=== PATIENT | male | born 1965 | race Caucasian/White ===

== ENCOUNTER 2024-09-25 13:51 | Emergency (ER) | payer OTHER ==
[~2024-09-25] VITALS: Ht 188 cm; Wt 102.1 kg
[2024-09-25 14:43] LABS: BASOPHILS # (AUTO) 0.04 K/uL (0.00-0.20); BASOPHILS % (AUTO) 0.6 % (0.0-5.0); EOSINOPHILS # (AUTO) 0.23 K/uL (0.00-0.70); EOSINOPHILS % (AUTO) 3.4 % (0.0-8.0); HEMATOCRIT 44.9 % (42-54); IMMATURE GRANULOCYTE ABSOLUTE 0.01 K/uL (0-1); LYMPHOCYTES # (AUTO) 1.7 K/uL (1.0-4.8); LYMPHOCYTES % (AUTO) 25.5 % (21.0-51.0); MEAN CORPUSCULAR HEMOGLOBIN 30.3 pg (27.0-33.0); MEAN CORPUSCULAR HGB CONC 33.9 g/dL (32.0-36.0); MEAN CORPUSCULAR VOLUME 89.4 fL (79-99); MONOCYTES # (AUTO) 0.5 K/uL (0.1-1.0); NEUTROPHILS # (AUTO) 4.3 K/uL (1.8-7.7); NEUTROPHILS % (AUTO) 63.4 % (40.0-77.0); PLATELET COUNT (AUTO) 293 K/uL (130-400); RED BLOOD CELL COUNT(AUTO) 5.02 MIL/uL (4.50-6.20); WHITE BLOOD COUNT (AUTO) 6.7 K/uL (4.8-10.8)
--- NOTE | 2024-09-25 15:00 | HMCIMG ---
Exam Type: CHEST 1VW Clinical Information: chest pain Comparison: None Findings: The lungs are clear of infiltrates. The heart is normal in size. The bony and soft tissue structures of the chest are unremarkable. Impression: Clear lungs.
[2024-09-25 15:40] LABS: B-TYPE NATRIURETIC PEPTIDE 7 pg/mL (0-100)
--- NOTE | 2024-09-25 16:25 | ERN ---
General Chief Complaint: Chest Wall Pain Stated Complaint: CHEST PAIN Time Seen by MD: 13:55 History of Present Illness Initial Comments 59-year-old male history of CAD and stent placement presents for cardiac evaluation. Patient reports over the last few days he has had some epigastric discomfort and a bit of coughing. No chest pain or pressures. No dyspnea. Patient went to his PCP and was sent here for further evaluation. Allergies: Coded Allergies: No Known Allergies (Unverified Allergy, Unknown, 09/25/24) Past Medical History Past Medical History: Heart Disease, Hypertension Past Surgical History: Other Surgical History Other: HEART STENT, NECK SX ROS Dictation CONSTITUTIONAL: No chills, no fever, no weakness, no diaphoresis, no malaise. HEAD/FACE: No signs of trauma. EENT: No eye pain, no blurred vision, no tearing, no double vision, no ear pain, no ear discharge, no nose pain, no nasal congestion, no throat pain, no throat swelling, no mouth pain. RESPIRATORY: No cough, no orthopnea, no SOB, no stridor, no wheezing. CARDIOVASCULAR: Chest pain GASTROINTESTINAL/ABDOMINAL: No abdominal pain, no constipation, no diarrhea, no nausea, no vomiting. GENITOURINARY: No abnormal discharge, no dysuria, no frequent urination, no hematuria. No complaints of pain in the genitals. MUSCULOSKELETAL: No back pain, no gout, no joint pain, no joint swelling, no muscle pain, no muscle stiffness, no neck pain. INTEGUMENTARY: No change in color, no change in hair/nails, no dryness, no lesion, no lumps, no rash. NEUROLOGICAL/PSYCH: No anxiety, not depressed, no emotional problem, no headache, no numbness, no pre-existing deficit, no history of seizures, no tremors, no weakness. HEMATOLOGIC/LYMPHATIC: Not anemic, no history of blood clots, no apparent bleeding, no bruising, glands not swollen. All Systems Negative, Except as Noted. Physical Exam Physical Exam Dictation VITAL SIGNS: Reviewed. GENERAL APPEARANCE: Alert, oriented x3, no acute distress HEAD AND FACE: Non-traumatic. EYES: PERRL, pink conjunctivas, eyelid no trauma, anterior chamber clear. EARS: Pinnas intact and no signs of trauma or erythema. Ear canals clear and no discharge. TMs no erythema. NOSE: No discharge, no bleeding. OROPHARYNX: Mouth normal, teeth no caries, tongue pink. Pharynx clear, no erythema. Tonsils no exudates, no abscesses noted. Mucous membrane moist. NECK: Supple, non-tender, no thyromegaly, no masses, no JVD, no bruits. BREAST: Deferred. CHEST: No tenderness, no crepitus, no paradoxical movement, no retractions. LUNGS: Clear, well-ventilated, symmetric, no rales, no wheezing, no rhonchi, no stridor, good breath sounds bilaterally. HEART: Regular rate, regular rhythm, no murmur, no gallops. VASCULAR: No peripheral edema. ABDOMEN: Soft, positive bowel sounds, nondistended, no guarding, nontender, no rebound, no masses no hepatomegaly, no splenomegaly, no Gonzales's sign, no hernias. RECTAL: Deferred. GENITAL: Deferred. NEUROLOGICAL: Normal speech, gross motor function intact, gross sensory function intact. MUSCULOSKELETAL: Neck nontender, full range of motion, back nontender, full range of motion. EXTREMITIES: Nontender, full range of motion. SKIN: Color pink, dry, no turgor, no rash, no lacerations, no abrasions, no contusions. LYMPHATICS: Deferred. Results Laboratory and Microbiology Lab and Micro Result Laboratory Tests Test 09/25/24 14:26 09/25/24 15:26 White Blood Count 6.7 K/uL (4.8-10.8) Red Blood Count 5.02 MIL/uL (4.50-6.20) Hemoglobin 15.2 g/dL (14.0-18.0) Hematocrit 44.9 % (42-54) Mean Corpuscular Volume 89.4 fL (79-99) Mean Corpuscular Hemoglobin 30.3 pg (27.0-33.0) Mean Corpuscular Hemoglobin Concent 33.9 g/dL (32.0-36.0) Red Cell Distribution Width 13.0 % (11.0-15.5) Platelet Count 293 K/uL (130-400) Mean Platelet Volume 9.3 fL (7.5-10.5) Immature Granulocyte % (Auto) 0.1 % (0-1) Neutrophils (%) (Auto) 63.4 % (40.0-77.0) Lymphocytes (%) (Auto) 25.5 % (21.0-51.0) Monocytes (%) (Auto) 7.0 % (3.0-13.0) Eosinophils (%) (Auto) 3.4 % (0.0-8.0) Basophils (%) (Auto) 0.6 % (0.0-5.0) Neutrophils # (Auto) 4.3 K/uL (1.8-7.7) Lymphocytes # (Auto) 1.7 K/uL (1.0-4.8) Monocytes # (Auto) 0.5 K/uL (0.1-1.0) Eosinophils # (Auto) 0.23 K/uL (0.00-0.70) Basophils # (Auto) 0.04 K/uL (0.00-0.20) Absolute Immature Granulocyte (auto 0.01 K/uL (0-1) Nucleated Red Blood Cells 0.0 % (0.0-0.19) Sodium Level 139 mmol/L (136-145) Potassium Level 4.0 mmol/L (3.5-5.1) Chloride Level 103 mmol/L (101-111) Carbon Dioxide Level 30 mmol/L (21-32) Blood Urea Nitrogen 16 mg/dL (7-18) Creatinine 1.0 mg/dL (0.5-1.3) Glomerular Filtration Rate Calc 88 mL/min (>90) Random Glucose 96 mg/dL (70-105) Total Calcium 8.6 mg/dL (8.5-10.1) Total Creatine Kinase 128 U/L (21-232) Troponin I High Sensitivity < 4 ng/L (4-75) L < 4 ng/L (4-75) L B-Type Natriuretic Peptide 7 pg/mL (0-100) MDM CC: epigastric discomfort and mild dyspnea Historian: Patient Comorbidities: Hypertension and CAD Limitations by social determinants of health: None Differential diagnosis: ACS, PE, bronchitis, esophagitis, gastritis, other. Vital signs are stable, remained stable here in the ER. EKG shows a sinus rhythm rate of 71 with a normal axis, good R-wave progression, intervals are stable. No STEMI. Independently interpreted by me. Labs (independently ordered and interpreted by me ): Shows no leukocytosis no anemia. Electrolytes are stable. CK is stable. Troponin x2 is normal. BNP is 7. All stable. Chest x-ray per my independent interpretation shows no cardiomegaly pleural effusions or focal infiltrates. Patient is pain-free. He does have a heart score of three for age and risk factors. He has two normal troponins. I did offer the patient admission for observation and further treatment and evaluation, but the patient prefers outpatient workup at this time. I think this is safe to his low heart score. We will DC. ED Course Orders Procedure Category Date Status Time 12 Lead Ekg Tracing- EKG 09/25/24 Logged Technical 14:01 Cbc With Differential LAB 09/25/24 Complete 14:12 B-Type Natriuretic LAB 09/25/24 Complete Peptide 14:12 Chest 1vw RAD 09/25/24 Resulted 14:12 Creatine Kinase, Total LAB 09/25/24 Complete 14:12 Troponin I High LAB 09/25/24 Complete Sensitivity 14:12 Basic Metabolic Panel LAB 09/25/24 Complete 14:12 Troponin I High LAB 09/25/24 Complete Sensitivity 15:10 Vital Signs Date Time Temp Pulse Resp B/P (MAP) Pulse Ox O2 Delivery O2 Flow Rate FiO2 09/25/24 14:31 97.9 78 18 127/97 97 Room Air* 0 21 09/25/24 14:07 97.9 77 16 125/97 97 0 DX & DISP Disposition: Discharge Departure Impression: Primary Impression: Chest discomfort Condition: Stable Additional Instructions: Your workup does not show any acute abnormalities at this time. Your EKG is normal. Your chest x-ray is normal. Your blood work (CBC, BMP, CK, BNP, troponin x2) is normal. As we discussed, you are low risk for significant acute heart disease currently. That said, you should follow up with her primary doctor for further treatment and evaluation. Please return to the emergency department as needed. Referrals: SELF,REFERRAL (PCP) REJI CRUZ DO September 25, 2024 16:25
[2024-09-25 16:30] VITALS: BP 122/90; PULSE 75; RESP 18; TEMP 97.9; O2SAT 97
[2024-09-25] MEDS ORDERED: CODE473S6 PO (16:35)
--- NOTE | 2024-09-26 06:22 | EKG ---
[facility] Test Date: 2024-09-25 Test Time: 13:59:19 Pat Name: JESSICA SUTTON Department: ED Room: Gender: M [employer]: 07 : 1965 Requested By: REJI CRUZ Order Number: [id number] Reading MD: Mil Jerome Measurements Intervals [place] Rate: 71 P: 44 FL: 176 QRS: 83 QRSD: 91 T: 30 QT: 346 QTc: 376 Interpretive Statements Sinus rhythm No previous ECG available for comparison Electronically Signed On 09-26-2024 16:18:00 CDT by Mil Jerome Please click the below link to view image of tracing.
== END 2024-09-25 16:36 | disposition home or self-care (01) ==
LOC: EDH 13:51
DX: R07.89 Other chest pain (principal); I11.9 Hypertensive heart disease without heart failure; I25.10 Atherosclerotic heart disease of native coronary artery without angina pectoris; Z95.5 Presence of coronary angioplasty implant and graft
CPT/HCPCS: 36415; 71045; 80048; 82550; 83880; 84484; 85025; 93005; 99285